=== PATIENT | male | born 1980 | race Asian ===

== ENCOUNTER 2023-12-24 14:39 | Outpatient (AMB) | payer OTHER, SELFPAY ==
--- NOTE | 2023-12-24 14:47 | A.OFFVIS_ITS ---
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 Allergies No Known Allergies Allergy (Verified 12/24/23 15:02) Medication List - Last Reconciled 12/24/23 by ZENY Zuñiga esomeprazole magnesium 40 mg PO DAILY HPI Comments Details: Left handed 43-yr-old male presents for new pt evaluation of dizziness. Pt reports he started having dizziness last February 2023. At that time, he had just come back from traveling from [place], was having severe jet lag, and had a bad migraine. And ever since then, he has been feeling off. However, he has not had a migraine since that time. He has also traveled to/from [place] and had jet lag again, but not the full migraine and dizziness he had last Feb 2023. He describes the dizziness as he may feel lightheaded, like he would pass out, especially if walking slowly or even if sitting. He occasionally has orthostatic lightheadedness. He may have not right in space sensation. Dizziness may be a/w SOB/panting at times. The dizziness is pretty constant w/ varying intensities- cannot identify what triggers/aggravates the dizziness. He thought this was d/t blood sugar- but work-up was WNL. He saw ENT- per pt, exam was unremarkable. Occasional high pitched ringing in his ears. He has some chronic neck tightness r/t thyroid nodule and enlarged lymph node- triggers cervical spasms- not sure that this correlates w/ the dizziness. Sometimes has choking, has esophageal dysmotility. Just had a GI pressure test- has f/u w/ GI to discuss- ? using a muscle relaxer. He has resting tachycardia- HR 120s. Has had cardiac work-up- in early 2022- unremarkable. His migraine is a right temporal sharp pain a/w photophobia, phonophobia, N/V, activity intolerance, probably lightheadedness/dizziness- has to lay down for 3- 4 hrs. Usually occurs 1 x's per yr- triggered by weather changes, being sick. Does note take any migraine tx's for this. He does have milder right lutheran region tension (not pain) sensation, which lasts a few hours, not a/w photo/phonophobia, N/V, activity intolerance. Occurs a couple times a week. Triggered by focusing too long on something- such as working for an extended time. Tries to eat well. Takes 1 coffee per day. Takes 1 large bottle- about 2 liters per day. Rarely uses sports drink. He has not been exercising d/t his tachycardia and dizziness. He denies h/o syncope or seizures. He denies external or internal dizziness, , or sensation of being pulled to one side. Denies diplopia, tremors, numbness/tingling. 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 Medical History (Updated 12/24/23 @ 16:41 by ZENY Zuñiga) GERD (gastroesophageal reflux disease) Depression Surgical History (Updated 12/24/23 @ 15:03 by MARIYA Abreu) H/O shoulder surgery Social History (Updated 12/24/23 @ 15:04 by MARIYA Abreu) Alcohol intake: never Patient Tobacco Use Status: Never used Tobacco Physical Exam Vital Signs: Last Vital Signs Pulse 96 12/24/23 15:01 BP 118/84 12/24/23 15:01 Pulse Ox 97 12/24/23 15:01 Oxygen Delivery Method Room Air 12/24/23 15:01 BMI result Body Mass Index 33.5 Orthostatic BP & HR BP HR Symptoms Laying down after 5 minutes 102/80 84 felt drawsy Standing at 1 min 110/92 100 none Standing at 3 min 104/92 98 none Const Orientation/consciousness: patient oriented x3 Resp Effort & Inspection: normal respiratory effort and able to speak in complete sentences Neuro Other: Palpebral asymmetry L > R. EOM- intact- w/ exception of left eye deviates laterally on convergence. No palpable scalp tenderness. Mild bilateral TMJ tightness. No significant posterior cervical tightness. Cervical ROM: full Left Spurling: normal Right Spurling: normal. General: patient oriented x3 Cranial nerves: Yes Normal facial strength present, Yes Symmetric palate elevation present, Yes Ability to bilaterally rotate head present and Yes Ability to bilaterally elevate shoulders present Cognition (Neuro): normal cognition Gait exam (Neuro): Normal gait present Motor exam (neuro): 5/5 motor strength present throughout Deep tendon reflexes (DTR's): Right triceps reflex intensity grade: 2+, Left triceps reflex intensity grade: 2+, Rt Biceps (C5, C6): 2+, Left biceps reflex intensity grade: 2+, Right brachioradialis reflex intensity grade: 2+, Left brachioradialis reflex intensity grade: 2+, Right patellar reflex intensity grade: 2+ and Left patellar reflex intensity grade: 2+ Coordination: [id number] test normal, tandem gait normal and Romberg test negative Pupils: Normal pupillary reactivity/response: bilateral Psych Appearance: grossly normal Mental Status: mental status grossly normal Speech and movement: Normal speech and movement present Affect: normal affect Attitude: cooperative Thought process: Normal thought process present Assessment & Plan Assessment & Plan (1) Dizziness: Comment: Orthostatic BP/HR's were reassuring today. DDx includes vestibular migraine, orthostatic hypotension/tachycardia syndrome, central vertigo. Code(s): R42 - Dizziness and giddiness Category: Medical (2) Lightheadedness: Code(s): R42 - Dizziness and giddiness Category: Medical (3) Migraine without aura: Code(s): G43.009 - Migraine without aura, not intractable, without status migrainosus Category: Medical (4) Headache: Code(s): R51.9 - Headache, unspecified Category: Medical Plan Pt advised to undergo: Brain MRI w/wo to assess for secondary etiologies of dizziness, lightheadedness, headache in setting of esophageal dysmotility, h/o migraine. EKG tilt table test. For overall management: * Optimize good self-care, including but not limited to maintaining a healthy diet, adequate fluid intake, adequate sleep, and engaging in regular physical activity. * Add electrolyte replacement drink 1-2 servings per day For acute headache treatment: Discussed importance of taking acute medications at the first sign of headache, however stressed importance of avoiding acute medication overuse (especially with combined headache medications). Trial Sumatriptan 100mg tab, 1/2 - 1 tab (50-100mg) at onset of headache, may repeat in 2 hours. Max of 2 tabs (200mg) per 24 hours. May adjunct with OTC Tylenol 650mg q 4 hours, Ibuprofen 600mg q 6 hours, or Naproxen 440mg q 12 hrs prn. Previous acute migraine medication trials: none Acute migraine medication contraindications: None at this time For dizziness/headache prevention medication: Preventative medications should be taken routinely as prescribed for best effect, it may take several weeks for full effect to take effect. Start Amitriptyline 10mg daily at bedtime. Potential side effects include but are not limited to fatigue, cardiac arrhythmias, mood changes. Previous migraine prevention medication trials: None Migraine prevention medication contraindications: None at this time Pt seen in collaboration w/ Dr Erika Caputo. Will follow-up upon review of above and patient to follow-up in clinic in 6 months or sooner prn. Orders: Orders ECG Tilt Table Test Today R42 - Dizziness and giddiness, R51.9 - Headache, unspecified MR head/brain wo/w con Today K22.4 - Dyskinesia of esophagus, R42 - Dizziness and giddiness, R51.9 - Headache, unspecified Medications: New 2 amitriptyline 10 mg PO BEDTIME 30 days 30 tabs 3RF sumatriptan succinate (0.5 - 1 x 100 mg) 50 - 100 mg orally at onset of headache, may repeat in 2 hrs PRN; max 2 tabs per day or 4 tabs/week (may take with Ibuprofen) 30 days 12 tabs 6RF migraine headache Coding Level of Care Code New Pt Level 4 (80668) Diagnoses Dizziness R42 Lightheadedness R42 Migraine without aura G43.009 Headache R51.9
[2023-12-24 15:01] VITALS: BP 118/84; PULSE 96; O2SAT 97; BMI 33.5
== END 2023-12-24 16:16 | disposition home or self-care (01) ==
PROVIDERS: PCP Internal Medicine; Visit Provider Nurse Practitioner Family
DX: R42 Dizziness and giddiness (principal); G43.009 Migraine without aura, not intractable, without status migrainosus; R51.9 Headache, unspecified
CPT/HCPCS: 99204

== ENCOUNTER → 2023-12-24 14:39 | Outpatient (BNVA) | payer OTHER, SELFPAY | PROVIDERS: PCP Internal Medicine; Visit Provider Nurse Practitioner Family ==

== ENCOUNTER 2024-01-19 15:42 | Outpatient (REF) | payer OTHER, SELFPAY ==
--- NOTE | ~2024-01-19 | MR_ITS ---
EXAMINATION: MR BRAIN WITHOUT AND WITH CONTRAST CLINICAL INFORMATION: Headache COMPARISON: None available. TECHNIQUE: Multiplanar, multisequence MRI of the brain was obtained before and after the intravenous administration of 10 mL Gadavist. FINDINGS: No abnormal intracranial enhancement. No acute intracranial hemorrhage or infarct. No edema, midline shift or hydrocephalus. No acute extra-axial fluid collections. The osseous structures are unremarkable. The pituitary gland, pineal gland and remaining midline structures are unremarkable. No orbital pathology. The paranasal sinuses and mastoid air cells are clear. MR/MR head/brain wo/w con IMPRESSION: Normal MRI brain. Electronically signed by: Chrystal Alvarado MD 03/13/2024 07:22 PM EST
[2024-01-19] MEDS: gadobutroL 10 ML VIAL IVPUSH (16:34)
== END 2024-01-19 15:43 | disposition home or self-care (01) ==
LOC: HO.MRI 15:42
PROVIDERS: PCP Internal Medicine; Visit Provider Nurse Practitioner Family
DX: R42 Dizziness and giddiness (principal); R51.9 Headache, unspecified; K22.4 Dyskinesia of esophagus
CPT/HCPCS: 70553; A9585